=== PATIENT | male | born 1940 | race Caucasian/White ===

== ENCOUNTER 2016-11-21 21:47 | Emergency (ER) | payer MEDICARE ==
[2016-11-21] MEDS ORDERED: Ondansetron HCl/PF 4 MG/2 ML Vial ONE (21:55)
[2016-11-21] MEDS ORDERED: Midazolam HCl 2 mg/2 ml Vial ONE (21:55)
--- NOTE | 2016-11-21 23:19 | RAD ---
EXAM: ONE VIEW CHEST 11/21/16 COMPARISON: 06/01/16 HISTORY: SVT. Chest pain. FINDINGS: Normal cardiac silhouette per portable technique. Calcified right paratracheal lymph node. Pulmonary vessels are within normal limits. Patchy reticulonodular opacities likely due to interstitial edema . No pneumothorax or pleural effusion. No osseous abnormality. IMPRESSION: Interstitial edema. POS: [facility]
[2016-11-21 23:31] LABS: #Basophils 0.1 thou/uL (0.0-0.2); #Eosinphils 0.2 thou/uL (0.0-0.7); #Lymphocytes 1.4 thou/uL (1.20-3.40); #Monocytes 0.6 thou/uL (0.11-0.59); #Neutrophils 4.4 thou/uL (1.40-6.50); %Basophils 0.8 % (0.0-1.0); %Eosinophils 3.3 % (0.0-10.0); %Lymphocytes 20.9 % (21.0-51.0); %Monocytes 8.5 % (0.0-10.0); Hematocrit 40.8 % (42.0-52.0); Mean Platelet Volume 7.4 fL (7.4-10.4); Red Blood Cell (RBC) Count 4.54 mill/uL (4.70-6.10); White Blood Cell (WBC) Count 6.6 thou/uL (4.8-10.8)
[2016-11-21 23:49] LABS: Anion Gap 12 mmol/L (10-20); BUN (Urea Nitrogen) 21 mg/dL (8.4-25.7); Calc. Creatinine Clearance 0 mL/min (70-130); Calcium 8.3 mg/dL (7.8-10.44); Carbon Dioxide 23 mmol/L (23-31); Chloride 108 mmol/L (98-107); Estimated GFR-MDRD 60
[2016-11-21 23:55] LABS: Troponin I 0.022 ng/mL (< 0.028)
== END 2016-11-22 00:28 | disposition home or self-care (01) ==
LOC: ERS 21:47
DX: I47.1 Supraventricular tachycardia (principal); I48.92 Unspecified atrial flutter; I48.91 Unspecified atrial fibrillation
CPT/HCPCS: 36415; 71010; 80048; 82553; 84484; 85025; 93005; 93010; 96374; 96375; J2250; J2270; J2405

== ENCOUNTER 2017-08-26 10:31 | Outpatient (CLI) | payer OTHER ==
--- NOTE | 2017-08-26 12:25 | CT ---
CTA OF CHEST WITH CONTRAST: Date: 08/26/17 COMPARISON: None. HISTORY: Assess flow within the left atrial appendage. Atrial fibrillation needing anticoagulation. TECHNIQUE: Multiple contiguous axial images were obtained in a CTA of the chest with contrast. 3D sagittal and c oronal MIP reformats were performed. FINDINGS: Adequate contrast was seen in the left atrium and ventricle. There is an occlusive device adjacent to the left atrium. No significant flow is seen extending from the region of this occlusive device towa rds an atrial appendage. Normal flow is seen within the pulmonary veins. There is a small amount of f luid within the pericardium adjacent to the occlusion device. Calcifications are seen in the coronary arteries. No hilar or mediastinal lymphadenopathy are seen. No suspicious pulmonary nodules are seen. No focal infiltrates are seen. No pneumothorax or pleural e ffusions are seen. The visualized subdiaphragmatic structures are unremarkable. Degenerative changes are seen in the spi ne. The chest wall soft tissues are unremarkable. IMPRESSION: No significant flow seen within an atrial appendage. There is a nonspecific small amount of fluid wit hin the pericardium adjacent to the occlusive device. POS: [facility]
[2017-08-26] MEDS ORDERED: Iopamidol 370 76% 100 ML VIAL ONE (12:54)
== END 2017-08-26 10:32 | disposition home or self-care (01) ==
LOC: CT 10:31
PROVIDERS: ATTEND Internal Medicine Cardiovascular Disease
DX: Z48.812 Encounter for surgical aftercare following surgery on the circulatory system (principal); Z95.811 Presence of heart assist device; J94.8 Other specified pleural conditions
CPT/HCPCS: 71275; 82565

== ENCOUNTER 2020-03-20 14:59 | Outpatient (CLI) | payer MEDICARE ==
--- NOTE | 2020-03-20 15:42 | RAD ---
XR Lumbar Spine 2 Or 3 View: 03/20/2020 3:30 PM INDICATION: Spondylosis of the lumbar region without myelopathy or radiculopathy; no specific injury COMPARISON: None FINDINGS: Fracture: None. Alignment: There is grade 1 anterolisthesis of L4 and L5. Degenerative Change: There is moderate disc degenerative disease at L4-5 and L5-S1. There is moderat e degenerative change of the facet joints at L4-5 and L5-S1. Mild disc degenerative disease is seen at the remaining lumbar intervertebral levels. Bone Mineralization:Mild osteopenia Soft tissues: There are moderate vascular calcifications seen involving the visualized vasculature. IMPRESSION: 1. No acute fracture or subluxation. 2. Moderate lumbar spondylosis. There is grade 1 anterolisthesis of L4 and L5 which is likely degener ative.
--- NOTE | 2020-03-20 15:49 | CT ---
CT lumbar spine without IV contrast INDICATION: Low back pain Comparison: Lumbar spinal radiographs dated March 20, 2020 FINDINGS: Bones: There is diffuse osteopenia. There is grade 1 anterolisthesis of L4 and L5. No pars defects ar e evident. Disc spaces: There is moderate to severe narrowing of the L4-5 intervertebral disc level with vacuum disc phenomenon. There is Modic endplate degenerative changes at L4-5. There is a [id number] disc degenerative disease at L5-S1. There is moderate degenerative changes at L3-4, L2-3 and L1-2. Sm all bony hemangioma is seen within T12. Osseous central canal and neural foramina: At L5-S1, there is no appreciable osseous central canal or neural foraminal narrowing. At L4-5, there is severe central canal narrowing due to broad-based disc osteophyte complex, severe f acet hypertrophy and ligamentum flavum hypertrophy. There is at least moderate to severe bilateral osseous neural foraminal narrowing. At L3-4, there is a broad-based bulge with facet hypertrophy inducing mild central canal narrowing an d mild right neural foraminal narrowing. At L2-3, there is a broad-based bulge with facet hypertrophy inducing at least mild central canal rai rowing and mild bilateral neural foraminal narrowing. At L1-L2, there is no appreciable central canal or neuroforaminal narrowing. At T12-L1, there is no appreciable central canal or neural foraminal narrowing. Retroperitoneum and paravertebral soft tissues: There are moderate vascular calcifications seen invol ving the visualized vasculature. There is partial resolution of 4.2 cm hypodense mass within the left hemipelvis. IMPRESSION: 1. No acute fracture or subluxation demonstrated. 2. Moderate to severe lumbar spondylosis. Degenerative Grade 1 anterior anterolisthesis of L4 and L5 . There is severe central canal narrowing and moderate to severe bilateral osseous neural foraminal narrowing at L4-5. Mild central canal narrowing and mild right neural foraminal narrowing at L3-4. Mi ld central canal narrowing mild bilateral neural foraminal narrowing at L2-3. 3. Partially imaged 4.2 cm hypodense mass in the left hemipelvis. Follow-up CT the abdomen and pelvis with IV and enteric contrast is recommended for additional characterization.
== END 2020-03-20 15:00 | disposition home or self-care (01) ==
LOC: BICCT 14:59
PROVIDERS: ATTEND Family Medicine
DX: M47.816 Spondylosis without myelopathy or radiculopathy, lumbar region (principal); M43.16 Spondylolisthesis, lumbar region; M48.061 Spinal stenosis, lumbar region without neurogenic claudication; M89.9 Disorder of bone, unspecified
CPT/HCPCS: 72100; 72131

== ENCOUNTER 2020-10-30 13:43 | Outpatient (CLI) | payer OTHER | END 2020-10-30 13:44 | disposition home or self-care (01) | LOC: CT 13:43 | PROVIDERS: ATTEND Internal Medicine | DX: M47.22 Other spondylosis with radiculopathy, cervical region (principal) | CPT/HCPCS: 72125 ==

== ENCOUNTER 2021-05-26 03:38 | Emergency (ER) | payer MEDICARE, OTHER ==
[2021-05-26] MEDS ORDERED: Ketorolac Tromethamine 30 MG/ML VIAL ONE (03:59)
[2021-05-26 04:25] LABS: #Basophils 0.1 thou/uL (0.0-0.2); #Eosinphils 0.3 thou/uL (0.0-0.7); #Lymphocytes 1.2 thou/uL (1.20-3.40); #Monocytes 0.4 thou/uL (0.11-0.59); #Neutrophils 3.5 thou/uL (1.40-6.50); %Basophils 1.1 % (0.0-1.0); %Lymphocytes 22.4 % (21.0-51.0); %Neutrophils 63.5 % (42.0-75.0); Hemoglobin 15.4 g/dL (14.0-18.0); Mean Corpuscular HGB CONC 31.9 g/dL (32.0-36.0); Mean Corpuscular Hemoglobin 29.1 pg (27.0-31.0); Mean Corpuscular Volume 91.1 fL (78.0-98.0); Mean Platelet Volume 7.3 fL (7.4-10.4); Platelet Count 168 thou/uL (130-400); RBC Distribution Width 12.5 % (11.5-14.5); Red Blood Cell (RBC) Count 5.31 mill/uL (4.70-6.10); White Blood Cell (WBC) Count 5.5 thou/uL (4.8-10.8)
[2021-05-26 04:55] LABS: ALT (SGPT) 7 U/L (8-55); AST (SGOT) 12 U/L (5-34); Albumin 4.2 g/dL (3.4-4.8); Alkaline Phosphatase 47 U/L (40-110); Anion Gap 14 mmol/L (10-20); BUN (Urea Nitrogen) 20 mg/dL (8.4-25.7); Bilirubin, Total 0.4 mg/dL (0.2-1.2); Calc. Creatinine Clearance 0 mL/min (70-130); Carbon Dioxide 24 mmol/L (23-31); Chloride 105 mmol/L (98-107); Globulin 2.5 g/dL (2.4-3.5); Glucose 99 mg/dL (83-110); Protein, Total 6.7 g/dL (5.8-8.1); Sodium 139 mmol/L (136-145)
[2021-05-26 05:19] LABS: Bilirubin Negative (Negative); Blood, Urine Negative (Negative); Clarity Clear (Clear); Glucose, Urine (Dipstick) Normal (Negative); Ketone, Urine Negative (Negative); Leukocyte Negative Leu/uL (Negative); Nitrite Negative (Negative); Protein, Urine (Dipstick) Negative (Neg-Trace); Specific Gravity, Urine 1.013 (1.002-1.036); Urobilinogen Normal mg/dL (Less than 2); pH, Urine 5.5 (5.0-9.0)
[2021-05-26] MEDS ORDERED: Ondansetron PF 4 MG/2 ML Vial ONE (05:54)
[2021-05-26] MEDS ORDERED: Morphine 4 MG/ML VIAL ONE (05:54)
== END 2021-05-26 06:39 | disposition home or self-care (01) ==
LOC: ERS 03:38
DX: B02.9 Zoster without complications (principal); R10.31 Right lower quadrant pain; I10 Essential (primary) hypertension; I48.91 Unspecified atrial fibrillation; Z79.890 Hormone replacement therapy
CPT/HCPCS: 74176; 80053; 81003; 85025; 96374; 96375; J1885; J2270; J2405

== ENCOUNTER 2021-08-17 18:19 | Observation (INO) | payer MEDICARE ==
[2021-08-17 19:25] LABS: #Basophils 0.1 thou/uL (0.0-0.2); #Eosinphils 0.4 thou/uL (0.0-0.7); #Lymphocytes 1.3 thou/uL (1.20-3.40); #Monocytes 0.7 thou/uL (0.11-0.59); %Basophils 0.6 % (0.0-1.0); %Eosinophils 4.4 % (0.0-10.0); %Lymphocytes 15.6 % (21.0-51.0); %Monocytes 7.8 % (0.0-10.0); %Neutrophils 71.6 % (42.0-75.0); Hemoglobin 12.3 g/dL (14.0-18.0); Mean Corpuscular HGB CONC 32.8 g/dL (32.0-36.0); Mean Corpuscular Hemoglobin 30.6 pg (27.0-31.0); Mean Corpuscular Volume 93.2 fL (78.0-98.0); Platelet Count 210 thou/uL (130-400); RBC Distribution Width 12.5 % (11.5-14.5); Red Blood Cell (RBC) Count 4.03 mill/uL (4.70-6.10); White Blood Cell (WBC) Count 8.4 thou/uL (4.8-10.8)
[2021-08-17] MEDS ORDERED: Aspirin Chewable 81 MG TAB ONE (19:29)
[2021-08-17 19:50] LABS: ALT (SGPT) Less than 7 U/L (8-55); AST (SGOT) 14 U/L (5-34); Albumin 3.6 g/dL (3.4-4.8); Alkaline Phosphatase 58 U/L (40-110); Anion Gap 15 mmol/L (10-20); BUN (Urea Nitrogen) 16 mg/dL (8.4-25.7); Bilirubin, Total 0.3 mg/dL (0.2-1.2); CK (CPK) 96 U/L (30-200); Calc. Creatinine Clearance 0 mL/min (70-130); Calcium 8.8 mg/dL (7.8-10.44); Carbon Dioxide 24 mmol/L (23-31); Chloride 103 mmol/L (98-107); Globulin 2.9 g/dL (2.4-3.5); Glucose 104 mg/dL (83-110); Lipase 11 U/L (8-78); Potassium 3.9 mmol/L (3.5-5.1); Protein, Total 6.5 g/dL (5.8-8.1); Sodium 138 mmol/L (136-145)
[2021-08-17 21:34] VITALS: BMI 31.8
[2021-08-17 23:29] LABS: Troponin I Less than 0.010 ng/mL (< 0.028)
[2021-08-18 01:50] LABS: Troponin I Less than 0.010 ng/mL (< 0.028)
[2021-08-18 08:11] VITALS: BP 150/73; TEMP 98.1
[2021-08-18] MEDS ORDERED: Aspirin Chewable 81 MG TAB PO SCH (09:00)
[2021-08-18] MEDS ORDERED: Enoxaparin Sodium 40 MG/0.4 ML SYRINGE SC SCH (09:00)
[2021-08-18] MEDS ORDERED: Levothyroxine Sodium 100 MCG TAB PO SCH (09:00)
[2021-08-18] MEDS ORDERED: Tamsulosin HCl 0.4 MG CAP PO SCH (21:00)
== END 2021-08-18 11:55 | disposition home or self-care (01) ==
LOC: ERS 18:19 → 2SW 20:05
PROVIDERS: ADMIT Internal Medicine; ATTEND Internal Medicine
DX: R00.2 Palpitations (principal); R00.0 Tachycardia, unspecified; R07.89 Other chest pain; I48.91 Unspecified atrial fibrillation; N40.0 Benign prostatic hyperplasia without lower urinary tract symptoms; E03.9 Hypothyroidism, unspecified; E66.9 Obesity, unspecified; Z68.31 Body mass index [BMI] 31.0-31.9, adult; Z79.890 Hormone replacement therapy; Z79.899 Other long term (current) drug therapy; Z91.041 Radiographic dye allergy status; Z95.818 Presence of other cardiac implants and grafts; Z98.890 Other specified postprocedural states; Z20.822 Contact with and (suspected) exposure to COVID-19
CPT/HCPCS: 71045; 81001; 82550; 83690; 83880; 84484 ×3; 87086; 93005; U0003; U0005; 36415; 80053; 84443; 85025; 87077; 87186; G0378

== ENCOUNTER 2022-04-24 08:29 | Day surgery (SDC) | payer OTHER ==
[2022-04-24 08:30] LABS: #Eosinphils 0.3 thou/uL (0.0-0.7); #Lymphocytes 1.4 thou/uL (1.20-3.40); #Monocytes 0.7 thou/uL (0.11-0.59); #Neutrophils 4.3 thou/uL (1.40-6.50); %Basophils 0.5 % (0.0-1.0); %Lymphocytes 20.4 % (21.0-51.0); %Monocytes 9.8 % (0.0-10.0); %Neutrophils 65.3 % (42.0-75.0); Hemoglobin 15.1 g/dL (14.0-18.0); Mean Corpuscular HGB CONC 34.3 g/dL (32.0-36.0); Mean Corpuscular Hemoglobin 30.9 pg (27.0-31.0); Mean Corpuscular Volume 90.2 fl (78.0-98.0); Mean Platelet Volume 7.7 fL (7.4-10.4); Platelet Count 183 10x3/uL (130-400); RBC Distribution Width 12.4 % (11.5-14.5); White Blood Cell (WBC) Count 6.6 10x3/uL (4.8-10.8)
[2022-04-24 08:45] LABS: PTT 28.9 sec (22.9-36.1); Prothrombin Time 13.3 sec (12.0-14.7)
[2022-04-24] MEDS ORDERED: Sodium Bicarbonate 2.5 MEQ/5 ML VIAL ONE (09:37)
[2022-04-24] MEDS ORDERED: Fentanyl 100 MCG/2 ML VIAL ONE (09:37)
[2022-04-24 11:54] VITALS: BP 143/84; TEMP 98.4
== END 2022-04-24 11:00 | disposition short-term general hospital (02) ==
LOC: CT 08:29
PROVIDERS: ATTEND Urology
PROC: 0T9B30Z Drainage of Bladder with Drainage Device, Percutaneous Approach (ICD-10-PCS; principal; 2022-04-24)
DX: N40.1 Benign prostatic hyperplasia with lower urinary tract symptoms (principal); R33.8 Other retention of urine; R39.14 Feeling of incomplete bladder emptying; N31.2 Flaccid neuropathic bladder, not elsewhere classified; N32.3 Diverticulum of bladder; Z87.891 Personal history of nicotine dependence; Z79.890 Hormone replacement therapy; Z79.899 Other long term (current) drug therapy; Z91.041 Radiographic dye allergy status
CPT/HCPCS: 51102; 77002; 85025; 85610; 85730; C2627; J1956; J3010

== ENCOUNTER 2022-04-25 10:51 | Inpatient (IN) | payer MEDICARE, OTHER ==
[2022-04-25 11:32] LABS: Clarity Cloudy (Clear); Glucose, Urine (Dipstick) Unable to Interpret mg/dL (Negative); Ketone, Urine Unable to Interpret mg/dL (Negative); Leukocyte Unable to Interpret Leu/uL (Negative); Nitrite Unable to Interpret (Negative); Protein, Urine (Dipstick) Unable to Interpret mg/dL (Neg-Trace); Specific Gravity, Urine 1.018 (1.002-1.036); pH, Urine 5.7 (5.0-9.0)
[2022-04-25 11:33] LABS: Bacteria/HPF Rare-Few HPF (None Seen); Bilirubin Unable to Interpret (Negative); Blood, Urine Unable to Interpret (Negative); RBC/HPF Greater than 50 HPF (0-3); Squamous Epithelial None Seen HPF (0-3); Urobilinogen UNABLE TO INTERPRET mg/dL (Less than 2)
[2022-04-25] MEDS ORDERED: Morphine 4 MG/ML VIAL SLOW IVP PRN (12:09)
[2022-04-25] MEDS ORDERED: Zolpidem Tartrate 5 MG TAB PO PRN (12:09)
[2022-04-25] MEDS ORDERED: Phenazopyridine HCl 95 MG TAB PO PRN (12:09)
[2022-04-25] MEDS ORDERED: diphenhydrAMINE 50 MG/ML VIAL IVP PRN (12:09)
[2022-04-25] MEDS ORDERED: hydrALAZINE 20 MG/ML VIAL SLOW IVP PRN (12:09)
[2022-04-25] MEDS ORDERED: Mag-Al 1200 mg/1200 mg/30 ML UDCUP PO PRN (12:09)
[2022-04-25] MEDS ORDERED: Morphine 2 MG/ML VIAL SLOW IVP PRN (12:09)
[2022-04-25] MEDS ORDERED: HYDROcodone/Acetaminophen 5/325 mg Tablet PO PRN (12:09)
[2022-04-25] MEDS ORDERED: Bisacodyl 10 MG SUPP PR PRN (12:09)
[2022-04-25] MEDS ORDERED: traMADol HCl 50 MG TAB PO PRN ×2 (12:12)
[2022-04-25 12:38] LABS: Hemoglobin 14.2 g/dL (14.0-18.0); Mean Corpuscular HGB CONC 33.7 g/dL (32.0-36.0); Mean Corpuscular Hemoglobin 30.5 pg (27.0-31.0); Mean Corpuscular Volume 90.5 fl (78.0-98.0); Mean Platelet Volume 7.9 fL (7.4-10.4); Platelet Count 175 10x3/uL (130-400); RBC Distribution Width 12.4 % (11.5-14.5); Red Blood Cell (RBC) Count 4.65 mill/uL (4.70-6.10); White Blood Cell (WBC) Count 7.9 10x3/uL (4.8-10.8)
[2022-04-25] MEDS ORDERED: Ondansetron PF 4 MG/2 ML Vial IVP PRN (12:44)
[2022-04-25] MEDS ORDERED: Acetaminophen 325 MG TAB PO PRN (12:44)
[2022-04-25 12:50] LABS: PTT 30.6 sec (22.9-36.1); Prothrombin Time 13.9 sec (12.0-14.7)
[2022-04-25 12:56] LABS: Anion Gap 9 mmol/L (10-20); BUN (Urea Nitrogen) 14 mg/dL (8.4-25.7); Calc. Creatinine Clearance 0 mL/min (70-130); Calcium 8.6 mg/dL (7.8-10.44); Carbon Dioxide 25 mmol/L (23-31); Chloride 105 mmol/L (98-107); Estimated GFR 87; Glucose 83 mg/dL (83-110); Potassium 4.2 mmol/L (3.5-5.1); Sodium 135 mmol/L (136-145)
[2022-04-25] MEDS: Sodium Chloride 0.9% 1,000 ML IV SCH ×2 (14:17→19:31)
[2022-04-25 14:26] VITALS: BMI 32.1
[2022-04-25] MEDS ORDERED: cefTRIAXone\\ROCEPHIN 2 GM in Sodium Chloride 0.9% 100 ML IVPB SCH (15:00)
[2022-04-25] MEDS: HYDROcodone/Acetaminophen 5/325 mg Tablet PO PRN (17:18)
[2022-04-25] MEDS: Hyoscyamine SL 0.125 MG TAB SL SCH (17:18)
[2022-04-25] MEDS: Famotidine/PF 20 mg/2ml Vial SLOW IVP SCH (19:31)
[2022-04-25] MEDS: Docusate 100 MG CAP PO SCH (19:31)
[2022-04-25] MEDS: Tamsulosin HCl 0.4 MG CAP PO SCH (19:31)
[2022-04-26] MEDS: Hyoscyamine SL 0.125 MG TAB SL SCH ×5 (06:08→23:15)
[2022-04-26] MEDS: Levothyroxine Sodium 100 MCG TAB PO SCH (06:08)
[2022-04-26 06:24] LABS: #Eosinphils 0.4 thou/uL (0.0-0.7); #Monocytes 0.7 thou/uL (0.11-0.59); #Neutrophils 5.5 thou/uL (1.40-6.50); %Basophils 0.5 % (0.0-1.0); %Eosinophils 5.4 % (0.0-10.0); %Monocytes 9.2 % (0.0-10.0); Hemoglobin 13.1 g/dL (14.0-18.0); Mean Corpuscular HGB CONC 33.4 g/dL (32.0-36.0); Mean Corpuscular Hemoglobin 30.8 pg (27.0-31.0); Mean Corpuscular Volume 92.2 fl (78.0-98.0); Mean Platelet Volume 8.5 fL (7.4-10.4); Platelet Count 137 10x3/uL (130-400); RBC Distribution Width 12.5 % (11.5-14.5); Red Blood Cell (RBC) Count 4.24 mill/uL (4.70-6.10); White Blood Cell (WBC) Count 7.6 10x3/uL (4.8-10.8)
[2022-04-26 06:41] LABS: Anion Gap 13 mmol/L (10-20); BUN (Urea Nitrogen) 11 mg/dL (8.4-25.7); Calc. Creatinine Clearance 104 mL/min (70-130); Calcium 8.3 mg/dL (7.8-10.44); Carbon Dioxide 21 mmol/L (23-31); Chloride 108 mmol/L (98-107); Estimated GFR 86; Glucose 90 mg/dL (83-110); Potassium 3.9 mmol/L (3.5-5.1); Sodium 138 mmol/L (136-145)
[2022-04-26] MEDS ORDERED: fentaNYL PF 100 MCG/2 ML SYRINGE ONE (07:41)
[2022-04-26] MEDS ORDERED: Piperacillin/Tazobactam 3.375 GM VIAL ONE (07:55)
[2022-04-26] MEDS ORDERED: Sodium Chloride 0.9% 100 ML ONE (07:55)
[2022-04-26] MEDS ORDERED: PHENYLEPHRINE-NS 100 MCG/ML 10 ML SYRINGE ONE (08:26)
[2022-04-26] MEDS ORDERED: PROPOFOL 200 MG/20 ML VIAL ONE (08:26)
[2022-04-26] MEDS ORDERED: Glycopyrrolate 0.2 MG/ML 5 ML SYRINGE ONE (08:26)
[2022-04-26] MEDS ORDERED: NEOSTIGMINE 3 MG/3 ML SYR 3 MG/3 ML SYRINGE ONE (08:26)
[2022-04-26] MEDS ORDERED: Lidocaine 1% PF 5 ML VIAL ONE (08:26)
[2022-04-26] MEDS ORDERED: Rocuronium Bromide 10 MG/ML (10ML VIAL) ONE (08:26)
[2022-04-26] MEDS ORDERED: Piperacillin/Tazobactam 3.375 GM in Sodium Chloride 0.9% 100 ML IVPB SCH ×2 (08:30→15:00)
[2022-04-26] MEDS ORDERED: PACU-Morphine 4MG/ML VIAL SLOW IVP PRN (08:58)
[2022-04-26] MEDS ORDERED: Morphine Sulfate 2 MG/ML SYRINGE SLOW IVP PRN (08:58)
[2022-04-26] MEDS ORDERED: Ondansetron HCl/PF 4 MG/2 ML Vial IVP PRN (08:58)
[2022-04-26] MEDS ORDERED: Promethazine HCl 25 MG/ML VIAL IM PRN (08:58)
[2022-04-26] MEDS ORDERED: HYDROmorphone 2 MG/ML VIAL SLOW IVP PRN (08:58)
[2022-04-26] MEDS: HYDROcodone/Acetaminophen 5/325 mg Tablet PO PRN ×3 (11:32→21:24)
[2022-04-26] MEDS: Docusate 100 MG CAP PO SCH ×2 (13:03→21:22)
[2022-04-26] MEDS: Famotidine/PF 20 mg/2ml Vial SLOW IVP SCH ×2 (13:03→21:23)
[2022-04-26] MEDS: Multivitamin W/ Minerals 1 TAB PO SCH (13:04)
[2022-04-26] MEDS: Fentanyl 100 MCG/2 ML VIAL SLOW IVP PRN ×2 (13:08→18:11)
[2022-04-26] MEDS: Piperacillin/Tazobactam 3.375 GM in Sodium Chloride 0.9% 100 ML IVPB SCH ×2 (14:21→21:30)
[2022-04-26] MEDS: Sodium Chloride 0.9% 1,000 ML IV SCH (15:23)
[2022-04-26] MEDS: Tamsulosin HCl 0.4 MG CAP PO SCH (21:23)
[2022-04-27] MEDS: Sodium Chloride 0.9% 1,000 ML IV SCH ×2 (02:57→16:37)
[2022-04-27] MEDS: Piperacillin/Tazobactam 3.375 GM in Sodium Chloride 0.9% 100 ML IVPB SCH ×3 (05:13→21:16)
[2022-04-27] MEDS: Levothyroxine Sodium 100 MCG TAB PO SCH (05:15)
[2022-04-27] MEDS: Hyoscyamine SL 0.125 MG TAB SL SCH ×3 (05:15→18:37)
[2022-04-27] MEDS: HYDROcodone/Acetaminophen 5/325 mg Tablet PO PRN (05:24)
[2022-04-27 06:20] LABS: #Eosinphils 0.3 thou/uL (0.0-0.7); #Lymphocytes 0.9 thou/uL (1.20-3.40); #Monocytes 0.8 thou/uL (0.11-0.59); #Neutrophils 7.9 thou/uL (1.40-6.50); %Basophils 0.4 % (0.0-1.0); %Eosinophils 3.1 % (0.0-10.0); %Monocytes 8.1 % (0.0-10.0); %Neutrophils 79.5 % (42.0-75.0); Hemoglobin 12.2 g/dL (14.0-18.0); Mean Corpuscular HGB CONC 34.1 g/dL (32.0-36.0); Mean Corpuscular Hemoglobin 30.9 pg (27.0-31.0); Mean Corpuscular Volume 90.4 fl (78.0-98.0); Mean Platelet Volume 8.1 fL (7.4-10.4); Platelet Count 157 10x3/uL (130-400); RBC Distribution Width 12.3 % (11.5-14.5); Red Blood Cell (RBC) Count 3.96 mill/uL (4.70-6.10)
[2022-04-27] MEDS: Famotidine/PF 20 mg/2ml Vial SLOW IVP SCH ×2 (09:43→21:15)
[2022-04-27] MEDS: Docusate 100 MG CAP PO SCH ×2 (09:44→21:15)
[2022-04-27] MEDS: Multivitamin W/ Minerals 1 TAB PO SCH (09:44)
[2022-04-27] MEDS: Tamsulosin HCl 0.4 MG CAP PO SCH (21:15)
[2022-04-28] MEDS: Hyoscyamine SL 0.125 MG TAB SL SCH ×3 (00:07→11:29)
[2022-04-28] MEDS: Sodium Chloride 0.9% 1,000 ML IV SCH (00:08)
[2022-04-28] MEDS: Piperacillin/Tazobactam 3.375 GM in Sodium Chloride 0.9% 100 ML IVPB SCH (05:55)
[2022-04-28] MEDS: Levothyroxine Sodium 100 MCG TAB PO SCH (05:55)
[2022-04-28] MEDS: Multivitamin W/ Minerals 1 TAB PO SCH (07:55)
[2022-04-28] MEDS: Docusate 100 MG CAP PO SCH (07:55)
[2022-04-28] MEDS: Famotidine/PF 20 mg/2ml Vial SLOW IVP SCH (07:56)
[2022-04-28 12:32] VITALS: BP 133/73; TEMP 98.1
== END 2022-04-28 12:57 | disposition home or self-care (01) | DRG 654 ==
LOC: ERS 10:51 → SURG B 13:41 → OBSVTOIN 04-26 14:12
PROVIDERS: ADMIT Internal Medicine; ATTEND Internal Medicine
PROC: 0T9B30Z Drainage of Bladder with Drainage Device, Percutaneous Approach (ICD-10-PCS; 2022-04-24)
PROC: 0T7B8ZZ Dilation of Bladder, Via Natural or Artificial Opening Endoscopic (ICD-10-PCS; principal; 2022-04-26)
PROC: 0T2BX0Z Change Drainage Device in Bladder, External Approach (ICD-10-PCS; 2022-04-26)
PROC: 0TCB8ZZ Extirpation of Matter from Bladder, Via Natural or Artificial Opening Endoscopic (ICD-10-PCS; 2022-04-26)
DX: R31.0 Gross hematuria (principal); D62 Acute posthemorrhagic anemia; E87.1 Hypo-osmolality and hyponatremia; I48.91 Unspecified atrial fibrillation; E03.9 Hypothyroidism, unspecified; N31.2 Flaccid neuropathic bladder, not elsewhere classified; N32.3 Diverticulum of bladder; Y84.6 Urinary catheterization as the cause of abnormal reaction of the patient, or of later complication, without mention of misadventure at the time of the procedure; N18.2 Chronic kidney disease, stage 2 (mild); E66.9 Obesity, unspecified; Z87.891 Personal history of nicotine dependence; Z91.041 Radiographic dye allergy status; Z79.899 Other long term (current) drug therapy; Z68.32 Body mass index [BMI] 32.0-32.9, adult; Z79.890 Hormone replacement therapy; N40.1 Benign prostatic hyperplasia with lower urinary tract symptoms; R33.8 Other retention of urine; R39.14 Feeling of incomplete bladder emptying
CPT/HCPCS: 36415; 36416; 51102; 77002; 80048; 81003; 81015; 85025; 85027; 85610; 85730; 86850; 86900; 86901; 87086; 96365; 96375; 99284; C1769; C2627; G0378; J0696; J1956; J2270; J2272; J2543; J2704; J3010; J3490; J7050; S0028

== ENCOUNTER 2022-07-05 21:54 | Emergency (ER) | payer OTHER ==
[2022-07-05 23:01] LABS: #Eosinphils 0.1 thou/uL (0.0-0.7); #Monocytes 0.9 thou/uL (0.11-0.59); #Neutrophils 12.1 thou/uL (1.40-6.50); %Basophils 0.3 % (0.0-1.0); %Eosinophils 0.6 % (0.0-10.0); %Monocytes 6.6 % (0.0-10.0); %Neutrophils 87.2 % (42.0-75.0); Hemoglobin 14.3 g/dL (14.0-18.0); Mean Corpuscular HGB CONC 32.6 g/dL (32.0-36.0); Mean Corpuscular Hemoglobin 28.1 pg (27.0-31.0); Mean Corpuscular Volume 86.1 fl (78.0-98.0); Mean Platelet Volume 9.8 fL (7.4-10.4); Platelet Count 192 10x3/uL (130-400); RBC Distribution Width 13.4 % (11.5-14.5); Red Blood Cell (RBC) Count 5.09 mill/uL (4.70-6.10); White Blood Cell (WBC) Count 13.9 10x3/uL (4.8-10.8)
[2022-07-05 23:48] LABS: ALT (SGPT) Less than 7 U/L (8-55); AST (SGOT) 13 U/L (5-34); Albumin 4.2 g/dL (3.4-4.8); Alkaline Phosphatase 56 U/L (40-110); Anion Gap 15 mmol/L (10-20); BUN (Urea Nitrogen) 18 mg/dL (8.4-25.7); Bilirubin, Total 0.3 mg/dL (0.2-1.2); Calc. Creatinine Clearance 0 mL/min (70-130); Calcium 9.2 mg/dL (7.8-10.44); Carbon Dioxide 22 mmol/L (23-31); Chloride 104 mmol/L (98-107); Estimated GFR 85; Globulin 2.9 g/dL (2.4-3.5); Glucose 113 mg/dL (83-110); Potassium 3.9 mmol/L (3.5-5.1); Protein, Total 7.1 g/dL (5.8-8.1); Sodium 137 mmol/L (136-145)
== END 2022-07-06 00:12 | disposition left against medical advice (07) ==
LOC: ERS 21:54
DX: Z53.21 Procedure and treatment not carried out due to patient leaving prior to being seen by health care provider (principal)
CPT/HCPCS: 36415; 80053; 85025

== ENCOUNTER 2022-08-14 01:01 | Inpatient (IN) | payer OTHER ==
[2022-08-14] MEDS ORDERED: Ketorolac Tromethamine 30 MG/ML VIAL ONE (01:28)
[2022-08-14 01:44] LABS: Bacteria/HPF None Seen HPF (None Seen); Bilirubin Negative (Negative); Blood, Urine 2+ (Negative); CAUTI Indications for Culture Fever or rigors; Clarity Turbid (Clear); Glucose, Urine (Dipstick) Normal (Negative); Ketone, Urine Negative (Negative); Leukocyte 250 Leu/uL (Negative); Nitrite Negative (Negative); Protein, Urine (Dipstick) 10 mg/dL (Neg-Trace); RBC/HPF 21-50 HPF (0-3); Specific Gravity, Urine 1.016 (1.002-1.036); Squamous Epithelial None Seen HPF (0-3); Urobilinogen Normal mg/dL (Less than 2); WBC/HPF 21-50 HPF (0-3)
[2022-08-14 01:45] LABS: Urine Culture Reflex Yes Yes
[2022-08-14 01:50] LABS: #Basophils 0.1 thou/uL (0.0-0.2); #Monocytes 0.5 thou/uL (0.11-0.59); #Neutrophils 10.1 thou/uL (1.40-6.50); %Basophils 0.5 % (0.0-1.0); %Eosinophils 0.3 % (0.0-10.0); %Lymphocytes 2.5 % (21.0-51.0); %Monocytes 4.3 % (0.0-10.0); Hemoglobin 13.2 g/dL (14.0-18.0); Mean Corpuscular HGB CONC 33.1 g/dL (32.0-36.0); Mean Corpuscular Hemoglobin 27.8 pg (27.0-31.0); Mean Corpuscular Volume 84.2 fl (78.0-98.0); Mean Platelet Volume 9.6 fL (7.4-10.4); Platelet Count 147 10x3/uL (130-400); RBC Distribution Width 14.6 % (11.5-14.5); Red Blood Cell (RBC) Count 4.74 mill/uL (4.70-6.10); White Blood Cell (WBC) Count 10.9 10x3/uL (4.8-10.8)
[2022-08-14 02:13] LABS: AST (SGOT) 13 U/L (5-34); Albumin 3.8 g/dL (3.4-4.8); Alkaline Phosphatase 45 U/L (40-110); Anion Gap 14 mmol/L (10-20); BUN (Urea Nitrogen) 15 mg/dL (8.4-25.7); Bilirubin, Total 0.5 mg/dL (0.2-1.2); Calc. Creatinine Clearance 0 mL/min (70-130); Calcium 8.5 mg/dL (7.8-10.44); Carbon Dioxide 21 mmol/L (23-31); Chloride 106 mmol/L (98-107); Estimated GFR 88; Globulin 2.5 g/dL (2.4-3.5); Glucose 129 mg/dL (83-110); Potassium 3.7 mmol/L (3.5-5.1); Protein, Total 6.3 g/dL (5.8-8.1); Sodium 137 mmol/L (136-145)
[2022-08-14 02:14] LABS: ALT (SGPT) Less than 7 U/L (8-55)
[2022-08-14] MEDS ORDERED: Vancomycin 1 GM/200 ML (FROZEN) BAG ONE (02:56)
[2022-08-14] MEDS ORDERED: cefTRIAXone (ROCEPHIN) 2 GM VIAL ONE (02:56)
[2022-08-14] MEDS ORDERED: Cefepime 2 GM VIAL ONE (02:57)
[2022-08-14] MEDS ORDERED: Ondansetron ODT 4 MG TAB PO PRN (03:08)
[2022-08-14] MEDS ORDERED: Acetaminophen 325 MG TAB PO PRN ×2 (03:08→09:07)
[2022-08-14] MEDS ORDERED: Ondansetron PF 4 MG/2 ML Vial IVP PRN (03:08)
[2022-08-14 03:41] LABS: Magnesium 1.9 mg/dL (1.6-2.6)
[2022-08-14] MEDS ORDERED: Electrolyte Replacement Protocol 1 EACH FS SCH (04:00)
[2022-08-14] MEDS ORDERED: Magnesium 2 GM/50 ML(in water) 2 GM in Premix Bag 1 BAG IVPB SCH (04:00)
[2022-08-14 05:39] VITALS: BMI 33.0
[2022-08-14] MEDS: Lactated Ringer's 1,000 ML IV SCH ×2 (06:01→19:07)
[2022-08-14 06:46] LABS: Legionella Urinary Ag Negative (Negative); Strep pneumo Urine Ag NEGATIVE (NEGATIVE)
[2022-08-14] MEDS ORDERED: traMADol HCl 50 MG TAB PO PRN (09:07)
[2022-08-14] MEDS ORDERED: Cefepime 1 GM in Sodium Chloride 0.9% 100 ML IVPB SCH (15:00)
[2022-08-14] MEDS: Vancomycin 1 GM in Premix Bag 1 BAG IVPB SCH (16:22)
[2022-08-14] MEDS ORDERED: Cefepime 2 GM VIAL IVPB SCH (20:00)
[2022-08-14] MEDS: Docusate 100 MG CAP PO SCH (20:32)
[2022-08-14] MEDS: Tamsulosin HCl 0.4 MG CAP PO SCH (20:32)
[2022-08-14] MEDS: Cefepime 2 GM in Sodium Chloride 0.9% 100 ML IVPB SCH (20:32)
[2022-08-14] MEDS: Melatonin 3 MG TAB PO PRN (21:17)
[2022-08-15] MEDS: Vancomycin 1 GM in Premix Bag 1 BAG IVPB SCH (03:55)
[2022-08-15 07:12] LABS: #Basophils 0.1 thou/uL (0.0-0.2); #Eosinphils 0.5 thou/uL (0.0-0.7); #Monocytes 0.7 thou/uL (0.11-0.59); #Neutrophils 5.1 thou/uL (1.40-6.50); %Basophils 0.7 % (0.0-1.0); %Eosinophils 6.9 % (0.0-10.0); %Lymphocytes 11.1 % (21.0-51.0); %Neutrophils 71.2 % (42.0-75.0); Hemoglobin 12.8 g/dL (14.0-18.0); Mean Corpuscular HGB CONC 32.7 g/dL (32.0-36.0); Mean Corpuscular Hemoglobin 27.9 pg (27.0-31.0); Mean Corpuscular Volume 85.6 fl (78.0-98.0); Mean Platelet Volume 9.6 fL (7.4-10.4); Platelet Count 152 10x3/uL (130-400); RBC Distribution Width 14.8 % (11.5-14.5); Red Blood Cell (RBC) Count 4.58 mill/uL (4.70-6.10); White Blood Cell (WBC) Count 7.1 10x3/uL (4.8-10.8)
[2022-08-15 07:38] LABS: Anion Gap 12 mmol/L (10-20); BUN (Urea Nitrogen) 13 mg/dL (8.4-25.7); Calc. Creatinine Clearance 112 mL/min (70-130); Calcium 8.6 mg/dL (7.8-10.44); Carbon Dioxide 22 mmol/L (23-31); Chloride 106 mmol/L (98-107); Estimated GFR 87; Glucose 108 mg/dL (83-110); Potassium 3.8 mmol/L (3.5-5.1); Sodium 136 mmol/L (136-145)
[2022-08-15] MEDS ORDERED: [UNRECOGNIZED DRUG - OTHER] PO SCH (09:00)
[2022-08-15] MEDS: Multivit, Therapeutic 1 TAB PO SCH (09:21)
[2022-08-15] MEDS: Cefepime 2 GM in Sodium Chloride 0.9% 100 ML IVPB SCH ×2 (09:21→20:23)
[2022-08-15] MEDS: Levothyroxine Sodium 100 MCG TAB PO SCH (09:21)
[2022-08-15] MEDS: Docusate 100 MG CAP PO SCH ×2 (09:21→20:23)
[2022-08-15 14:32] LABS: Vancomycin, Trough 6.4 ug/mL
[2022-08-15] MEDS: VANCOMYCIN 1.25 GM/250 ML BAG 1.25 GM in Premix Bag 1 BAG IVPB SCH (16:05)
[2022-08-15] MEDS: Tamsulosin HCl 0.4 MG CAP PO SCH (20:23)
[2022-08-16] MEDS: VANCOMYCIN 1.25 GM/250 ML BAG 1.25 GM in Premix Bag 1 BAG IVPB SCH ×2 (03:51→14:25)
[2022-08-16] MEDS: Docusate 100 MG CAP PO SCH ×2 (08:15→21:19)
[2022-08-16] MEDS: Levothyroxine Sodium 100 MCG TAB PO SCH (08:15)
[2022-08-16] MEDS: Cefepime 2 GM in Sodium Chloride 0.9% 100 ML IVPB SCH ×2 (08:16→21:21)
[2022-08-16] MEDS: Multivit, Therapeutic 1 TAB PO SCH (08:16)
[2022-08-16 09:09] LABS: #Basophils 0.1 thou/uL (0.0-0.2); #Eosinphils 0.5 thou/uL (0.0-0.7); #Monocytes 0.5 thou/uL (0.11-0.59); #Neutrophils 3.5 thou/uL (1.40-6.50); %Basophils 1.1 % (0.0-1.0); %Eosinophils 8.7 % (0.0-10.0); %Lymphocytes 18.2 % (21.0-51.0); %Monocytes 8.7 % (0.0-10.0); %Neutrophils 62.9 % (42.0-75.0); Mean Corpuscular HGB CONC 32.8 g/dL (32.0-36.0); Mean Corpuscular Volume 85.4 fl (78.0-98.0); Mean Platelet Volume 10.1 fL (7.4-10.4); Platelet Count 153 10x3/uL (130-400); RBC Distribution Width 14.6 % (11.5-14.5); White Blood Cell (WBC) Count 5.5 10x3/uL (4.8-10.8)
[2022-08-16 09:22] LABS: Anion Gap 13 mmol/L (10-20); BUN (Urea Nitrogen) 12 mg/dL (8.4-25.7); Calc. Creatinine Clearance 108 mL/min (70-130); Calcium 8.9 mg/dL (7.8-10.44); Carbon Dioxide 22 mmol/L (23-31); Chloride 106 mmol/L (98-107); Estimated GFR 86; Glucose 110 mg/dL (83-110); Sodium 137 mmol/L (136-145)
[2022-08-16] MEDS: Tamsulosin HCl 0.4 MG CAP PO SCH (21:19)
[2022-08-16] MEDS: Melatonin 3 MG TAB PO PRN (22:05)
[2022-08-17] MEDS: Levothyroxine Sodium 100 MCG TAB PO SCH (09:32)
[2022-08-17] MEDS: Docusate 100 MG CAP PO SCH (09:32)
[2022-08-17] MEDS: Cefepime 2 GM in Sodium Chloride 0.9% 100 ML IVPB SCH ×2 (09:32→20:31)
[2022-08-17] MEDS: Multivit, Therapeutic 1 TAB PO SCH (09:32)
[2022-08-17] MEDS ORDERED: Bisacodyl 10 MG SUPP PR PRN (11:15)
[2022-08-17 11:31] LABS: #Eosinphils 0.4 thou/uL (0.0-0.7); #Monocytes 0.6 thou/uL (0.11-0.59); #Neutrophils 4.4 thou/uL (1.40-6.50); %Basophils 0.6 % (0.0-1.0); %Eosinophils 6.8 % (0.0-10.0); %Lymphocytes 14.3 % (21.0-51.0); %Monocytes 8.8 % (0.0-10.0); %Neutrophils 69.2 % (42.0-75.0); Hemoglobin 13.6 g/dL (14.0-18.0); Mean Corpuscular HGB CONC 33.3 g/dL (32.0-36.0); Mean Corpuscular Hemoglobin 28.1 pg (27.0-31.0); Mean Corpuscular Volume 84.3 fl (78.0-98.0); Platelet Count 180 10x3/uL (130-400); RBC Distribution Width 14.5 % (11.5-14.5); Red Blood Cell (RBC) Count 4.84 mill/uL (4.70-6.10); White Blood Cell (WBC) Count 6.4 10x3/uL (4.8-10.8)
[2022-08-17 12:00] LABS: Anion Gap 14 mmol/L (10-20); BUN (Urea Nitrogen) 12 mg/dL (8.4-25.7); Calc. Creatinine Clearance 111 mL/min (70-130); Carbon Dioxide 23 mmol/L (23-31); Chloride 103 mmol/L (98-107); Estimated GFR 87; Glucose 98 mg/dL (83-110); Potassium 4.1 mmol/L (3.5-5.1); Sodium 136 mmol/L (136-145)
[2022-08-17] MEDS ORDERED: Iopamidol-370 76% 500 ML MDV (1 ML CHARGE) ONE (12:57)
[2022-08-17] MEDS: Tamsulosin HCl 0.4 MG CAP PO SCH (20:31)
[2022-08-17] MEDS: Senokot S 8.6-50 MG TAB PO SCH (20:31)
[2022-08-17] MEDS: predniSONE 50 MG TAB PO SCH (20:31)
[2022-08-17] MEDS: Melatonin 3 MG TAB PO PRN (21:49)
[2022-08-18] MEDS: predniSONE 50 MG TAB PO SCH ×2 (03:33→08:31)
[2022-08-18 07:21] LABS: #Monocytes 0.1 thou/uL (0.11-0.59); #Neutrophils 5.8 thou/uL (1.40-6.50); %Basophils 0.4 % (0.0-1.0); %Eosinophils 0.1 % (0.0-10.0); %Lymphocytes 11.1 % (21.0-51.0); %Monocytes 1.2 % (0.0-10.0); %Neutrophils 86.6 % (42.0-75.0); Hemoglobin 15.5 g/dL (14.0-18.0); Mean Corpuscular HGB CONC 31.3 g/dL (32.0-36.0); Mean Corpuscular Hemoglobin 27.9 pg (27.0-31.0); Mean Platelet Volume 11.3 fL (7.4-10.4); Platelet Count 175 10x3/uL (130-400); RBC Distribution Width 14.6 % (11.5-14.5); Red Blood Cell (RBC) Count 5.55 mill/uL (4.70-6.10); White Blood Cell (WBC) Count 6.7 10x3/uL (4.8-10.8)
[2022-08-18 07:36] LABS: Mean Corpuscular Volume 89.4 fl (78.0-98.0)
[2022-08-18 07:42] LABS: Anion Gap 13 mmol/L (10-20); BUN (Urea Nitrogen) 15 mg/dL (8.4-25.7); Calc. Creatinine Clearance 98 mL/min (70-130); Calcium 9.7 mg/dL (7.8-10.44); Carbon Dioxide 24 mmol/L (23-31); Chloride 102 mmol/L (98-107); Estimated GFR 79; Glucose 151 mg/dL (83-110); Potassium 4.3 mmol/L (3.5-5.1); Sodium 135 mmol/L (136-145)
[2022-08-18] MEDS ORDERED: diphenhydrAMINE 50 MG CAP PO SCH (08:30)
[2022-08-18] MEDS: Levothyroxine Sodium 100 MCG TAB PO SCH (08:31)
[2022-08-18] MEDS: Senokot S 8.6-50 MG TAB PO SCH ×2 (08:31→20:18)
[2022-08-18] MEDS: Cefepime 2 GM in Sodium Chloride 0.9% 100 ML IVPB SCH ×2 (08:31→20:17)
[2022-08-18] MEDS: Multivit, Therapeutic 1 TAB PO SCH (08:31)
[2022-08-18] MEDS: Polyethylene Glycol 3350 17 GM Packet PO SCH (09:46)
[2022-08-18] MEDS: Tamsulosin HCl 0.4 MG CAP PO SCH (20:18)
[2022-08-18] MEDS: Melatonin 3 MG TAB PO PRN (20:21)
[2022-08-19 08:15] LABS: #Eosinphils 0.1 thou/uL (0.0-0.7); #Monocytes 0.7 thou/uL (0.11-0.59); #Neutrophils 8.6 thou/uL (1.40-6.50); %Basophils 0.3 % (0.0-1.0); %Eosinophils 1.1 % (0.0-10.0); %Lymphocytes 16.7 % (21.0-51.0); %Monocytes 6.5 % (0.0-10.0); %Neutrophils 75.1 % (42.0-75.0); Hemoglobin 13.2 g/dL (14.0-18.0); Mean Corpuscular HGB CONC 32.4 g/dL (32.0-36.0); Mean Corpuscular Hemoglobin 27.6 pg (27.0-31.0); Mean Corpuscular Volume 85.2 fl (78.0-98.0); Mean Platelet Volume 9.6 fL (7.4-10.4); Platelet Count 177 10x3/uL (130-400); RBC Distribution Width 14.7 % (11.5-14.5); Red Blood Cell (RBC) Count 4.79 mill/uL (4.70-6.10); White Blood Cell (WBC) Count 11.5 10x3/uL (4.8-10.8)
[2022-08-19 08:33] LABS: Anion Gap 12 mmol/L (10-20); BUN (Urea Nitrogen) 21 mg/dL (8.4-25.7); Calc. Creatinine Clearance 106 mL/min (70-130); Calcium 8.8 mg/dL (7.8-10.44); Carbon Dioxide 24 mmol/L (23-31); Chloride 105 mmol/L (98-107); Estimated GFR 86; Glucose 102 mg/dL (83-110); Potassium 3.7 mmol/L (3.5-5.1); Sodium 137 mmol/L (136-145)
[2022-08-19] MEDS: Levothyroxine Sodium 100 MCG TAB PO SCH (08:43)
[2022-08-19] MEDS: Multivit, Therapeutic 1 TAB PO SCH (08:43)
[2022-08-19] MEDS: Senokot S 8.6-50 MG TAB PO SCH ×2 (08:43→20:52)
[2022-08-19] MEDS: Cefepime 2 GM in Sodium Chloride 0.9% 100 ML IVPB SCH ×2 (08:43→20:52)
[2022-08-19] MEDS: Polyethylene Glycol 3350 17 GM Packet PO SCH (08:59)
[2022-08-19] MEDS: Tamsulosin HCl 0.4 MG CAP PO SCH (20:52)
[2022-08-19] MEDS: Melatonin 3 MG TAB PO PRN (22:37)
[2022-08-20] MEDS: Polyethylene Glycol 3350 17 GM Packet PO SCH (08:09)
[2022-08-20] MEDS: Senokot S 8.6-50 MG TAB PO SCH ×2 (08:09→20:25)
[2022-08-20] MEDS: Cefepime 2 GM in Sodium Chloride 0.9% 100 ML IVPB SCH ×2 (08:09→20:36)
[2022-08-20] MEDS: Multivit, Therapeutic 1 TAB PO SCH (08:09)
[2022-08-20] MEDS: Levothyroxine Sodium 100 MCG TAB PO SCH (08:09)
[2022-08-20] MEDS: Tamsulosin HCl 0.4 MG CAP PO SCH (20:25)
[2022-08-20] MEDS: Melatonin 3 MG TAB PO PRN (20:36)
[2022-08-21] MEDS: Cefepime 2 GM in Sodium Chloride 0.9% 100 ML IVPB SCH (08:35)
[2022-08-21] MEDS: Multivit, Therapeutic 1 TAB PO SCH (08:35)
[2022-08-21] MEDS: Levothyroxine Sodium 100 MCG TAB PO SCH (08:35)
[2022-08-21] MEDS: Polyethylene Glycol 3350 17 GM Packet PO SCH (08:36)
[2022-08-21] MEDS: Senokot S 8.6-50 MG TAB PO SCH (08:36)
[2022-08-21] MEDS ORDERED: Docusate 100 MG CAP PO SCH (09:00)
[2022-08-21 16:16] VITALS: BP 145/74; TEMP 97.8
== END 2022-08-21 16:47 | disposition home or self-care (01) | DRG 698 ==
LOC: ERS 01:01 → 2SW 03:06 → OBSVTOIN 08-15 13:50 → T4-A 08-15 19:51
PROVIDERS: ADMIT Student in an Organized Health Care Education/Training Program; ATTEND Internal Medicine
PROC: 3E03329 Introduction of Other Anti-infective into Peripheral Vein, Percutaneous Approach (ICD-10-PCS; 2022-08-14)
PROC: 02HV33Z Insertion of Infusion Device into Superior Vena Cava, Percutaneous Approach (ICD-10-PCS; principal; 2022-08-19)
PROC: B5181ZA Fluoroscopy of Superior Vena Cava using Low Osmolar Contrast, Guidance (ICD-10-PCS; 2022-08-19)
PROC: B548ZZA Ultrasonography of Superior Vena Cava, Guidance (ICD-10-PCS; 2022-08-19)
DX: T83.510A Infection and inflammatory reaction due to cystostomy catheter, initial encounter (principal); A41.52 Sepsis due to Pseudomonas; I48.19 Other persistent atrial fibrillation; N40.0 Benign prostatic hyperplasia without lower urinary tract symptoms; I50.9 Heart failure, unspecified; E03.9 Hypothyroidism, unspecified; N31.2 Flaccid neuropathic bladder, not elsewhere classified; N31.9 Neuromuscular dysfunction of bladder, unspecified; N30.90 Cystitis, unspecified without hematuria; Z91.041 Radiographic dye allergy status; Z98.890 Other specified postprocedural states; Z79.899 Other long term (current) drug therapy; Z79.890 Hormone replacement therapy
CPT/HCPCS: 36415; 36569; 71045; 74177; 80048; 80053; 80202; 81001; 83605; 83735; 84443; 85025; 87040; 87070; 87077; 87081; 87086; 87186; 87205; 87449; 87899; 96361; 96365; 96367; 96375; 96376; C1751; G0378; J0692; J0696; J1885; J3370; J3370-JW; J3475; J3490; J7120; J7512; Q9967

== ENCOUNTER 2023-03-12 13:35 | Outpatient (CLI) | payer OTHER | END 2023-03-12 13:36 | disposition home or self-care (01) | LOC: CT 13:35 | PROVIDERS: ATTEND Urology | DX: N40.1 Benign prostatic hyperplasia with lower urinary tract symptoms (principal); R33.8 Other retention of urine; N32.3 Diverticulum of bladder; N21.0 Calculus in bladder | CPT/HCPCS: 74176 ==

== ENCOUNTER 2023-04-08 00:32 | Inpatient (IN) | payer OTHER ==
[2023-04-08 01:37] LABS: #Basophils 0.1 thou/uL (0.0-0.2); #Eosinphils 0.1 thou/uL (0.0-0.7); #Monocytes 0.6 thou/uL (0.11-0.59); #Neutrophils 12.7 thou/uL (1.40-6.50); %Basophils 0.4 % (0.0-1.0); %Eosinophils 0.4 % (0.0-10.0); %Lymphocytes 2.3 % (21.0-51.0); %Monocytes 4.1 % (0.0-10.0); %Neutrophils 92.4 % (42.0-75.0); Hematocrit 41.5 % (42.0-52.0); Mean Corpuscular HGB CONC 33.7 g/dL (32.0-36.0); Mean Corpuscular Hemoglobin 28.9 pg (27.0-31.0); Mean Corpuscular Volume 85.6 fl (78.0-98.0); Platelet Count 150 10x3/uL (130-400); RBC Distribution Width 13.7 % (11.5-14.5); Red Blood Cell (RBC) Count 4.85 mill/uL (4.70-6.10); White Blood Cell (WBC) Count 13.7 10x3/uL (4.8-10.8)
[2023-04-08 02:01] LABS: ALT (SGPT) Less than 7 U/L (8-55); AST (SGOT) 16 U/L (5-34); Alkaline Phosphatase 47 U/L (40-110); Anion Gap 13 mmol/L (10-20); BUN (Urea Nitrogen) 20 mg/dL (8.4-25.7); Bilirubin, Total 0.5 mg/dL (0.2-1.2); Calc. Creatinine Clearance 0 mL/min (70-130); Calcium 8.7 mg/dL (7.8-10.44); Carbon Dioxide 24 mmol/L (23-31); Chloride 104 mmol/L (98-107); Estimated GFR 74; Globulin 2.4 g/dL (2.4-3.5); Glucose 145 mg/dL (83-110); Lipase 8 U/L (8-78); Magnesium 1.9 mg/dL (1.6-2.6); Potassium 3.6 mmol/L (3.5-5.1); Protein, Total 6.4 g/dL (5.8-8.1); Sodium 137 mmol/L (136-145)
[2023-04-08 02:31] LABS: Bacteria/HPF 1+ HPF (None Seen); Bilirubin Negative (Negative); Blood, Urine 2+ (Negative); CAUTI Indications for Culture Fever or rigors; Clarity Turbid (Clear); Glucose, Urine (Dipstick) Normal (Negative); Ketone, Urine Negative (Negative); Leukocyte 500 Leu/uL (Negative); Nitrite Negative (Negative); Protein, Urine (Dipstick) 50 mg/dL (Neg-Trace); Specific Gravity, Urine 1.019 (1.002-1.036); Squamous Epithelial 0-3 HPF (0-3); Urobilinogen Normal mg/dL (Less than 2); WBC/HPF Greater than 50 HPF (0-3); pH, Urine 7.5 (5.0-9.0)
[2023-04-08 02:32] LABS: Urine Culture Reflex Yes Yes
[2023-04-08 02:51] LABS: Troponin I 0.035 ng/mL (< 0.028)
[2023-04-08] MEDS ORDERED: Piperacillin/Tazobactam 3.375 GM VIAL ONE ×2 (02:56→08:52)
[2023-04-08] MEDS ORDERED: methylPREDNISolone Sod Succ 40 MG VIAL ONE (02:56)
[2023-04-08] MEDS ORDERED: Sodium Chloride 0.9% 100 ML ONE ×2 (02:56→08:52)
[2023-04-08] MEDS ORDERED: diphenhydrAMINE 50 MG/ML VIAL ONE (02:56)
[2023-04-08] MEDS ORDERED: Vancomycin 1 GM/200 ML (FROZEN) BAG ONE (02:57)
[2023-04-08] MEDS ORDERED: Famotidine/PF 20 mg/2ml Vial ONE (02:57)
[2023-04-08] MEDS ORDERED: Aspirin Chewable 81 MG TAB ONE (04:28)
[2023-04-08] MEDS ORDERED: HYDROcodone/Acetaminophen 10/325 mg Tablet ONE (04:29)
[2023-04-08 05:00] LABS: Lactic Acid 1.2 mmol/L (0.5-2.2)
[2023-04-08 06:49] LABS: Troponin I 0.176 ng/mL (< 0.028)
[2023-04-08] MEDS ORDERED: Ondansetron PF 4 MG/2 ML Vial IVP PRN (08:14)
[2023-04-08] MEDS ORDERED: Ondansetron ODT 4 MG TAB PO PRN (08:14)
[2023-04-08] MEDS ORDERED: HYDROcodone/Acetaminophen 5/325 mg Tablet PO PRN (08:14)
[2023-04-08] MEDS ORDERED: Acetaminophen 325 MG TAB PO PRN (08:14)
[2023-04-08] MEDS: Piperacillin/Tazobactam 3.375 GM in Sodium Chloride 0.9% 100 ML IVPB SCH (09:05)
[2023-04-08] MEDS: Sodium Chloride 0.9% 1,000 ML IV SCH (09:05)
[2023-04-08] MEDS ORDERED: traMADol HCl 50 MG TAB PO PRN (09:22)
[2023-04-08 09:27] LABS: Critical Call Chem Troponin I NUR.CD4 AT 0926; Troponin I 0.333 ng/mL (< 0.028)
[2023-04-08] MEDS ORDERED: Piperacillin/Tazobactam 3.375 GM in Sodium Chloride 0.9% 100 ML IVPB SCH (12:00)
[2023-04-08 12:57] VITALS: BMI 32.5
[2023-04-08] MEDS ORDERED: Iopamidol 370 76% 100 ML VIAL ONE (14:17)
[2023-04-08 14:27] LABS: Critical Call Chem Troponin I NUR.AA8@1426; Troponin I 0.518 ng/mL (< 0.028)
[2023-04-08] MEDS: Vancomycin 1 GM in Premix 1 BAG IVPB SCH (17:20)
[2023-04-08] MEDS ORDERED: Vancomycin (BATCH) 1.75 GM in Premix 1 BAG IVPB SCH (21:00)
[2023-04-08] MEDS: Senokot S 8.6-50 MG TAB PO SCH (21:09)
[2023-04-09 04:22] LABS: Hematocrit 39.2 % (42.0-52.0); Hemoglobin 12.8 g/dL (14.0-18.0); Mean Corpuscular HGB CONC 32.7 g/dL (32.0-36.0); Mean Corpuscular Hemoglobin 28.8 pg (27.0-31.0); Mean Corpuscular Volume 88.3 fl (78.0-98.0); Mean Platelet Volume 12.1 fL (7.4-10.4); Platelet Count 150 10x3/uL (130-400); RBC Distribution Width 14.1 % (11.5-14.5); Red Blood Cell (RBC) Count 4.44 mill/uL (4.70-6.10); White Blood Cell (WBC) Count 8.6 10x3/uL (4.8-10.8)
[2023-04-09 04:24] LABS: Delete Auto Diff?? YES
[2023-04-09 04:52] LABS: Anion Gap 10 mmol/L (10-20); BUN (Urea Nitrogen) 17 mg/dL (8.4-25.7); Calc. Creatinine Clearance 87 mL/min (70-130); Calcium 8.4 mg/dL (7.8-10.44); Carbon Dioxide 24 mmol/L (23-31); Chloride 107 mmol/L (98-107); Estimated GFR 71; Glucose 99 mg/dL (83-110); Potassium 3.8 mmol/L (3.5-5.1); Sodium 137 mmol/L (136-145)
[2023-04-09 08:10] LABS: Critical Call Chem Troponin I nur.sd13 at 0809; Troponin I 0.525 ng/mL (< 0.028)
[2023-04-09] MEDS: Multivit, Therapeutic 1 TAB PO SCH (08:41)
[2023-04-09] MEDS: Oxybutynin 5 MG TAB PO SCH (08:41)
[2023-04-09] MEDS ORDERED: Multivitamin W/ Minerals 1 TAB PO SCH (09:00)
[2023-04-09] MEDS: Aspirin 325 mg Enteric Coated Tablet PO SCH (11:05)
[2023-04-09 20:16] LABS: Vancomycin, Trough 6.3 ug/mL
[2023-04-09] MEDS: Vancomycin (BATCH) 1.5 GM in Premix 1 BAG IVPB SCH (21:24)
[2023-04-09] MEDS: Enoxaparin 120 MG/0.8 ML SYRINGE SC SCH (21:24)
[2023-04-10 04:55] LABS: #Basophils 0.1 thou/uL (0.0-0.2); #Eosinphils 0.6 thou/uL (0.0-0.7); #Monocytes 0.8 thou/uL (0.11-0.59); #Neutrophils 7.9 thou/uL (1.40-6.50); %Basophils 0.6 % (0.0-1.0); %Eosinophils 5.5 % (0.0-10.0); %Lymphocytes 11.2 % (21.0-51.0); %Monocytes 7.9 % (0.0-10.0); %Neutrophils 74.5 % (42.0-75.0); Hematocrit 40.3 % (42.0-52.0); Hemoglobin 13.4 g/dL (14.0-18.0); Mean Corpuscular HGB CONC 33.3 g/dL (32.0-36.0); Mean Corpuscular Hemoglobin 28.8 pg (27.0-31.0); Mean Corpuscular Volume 86.5 fl (78.0-98.0); Mean Platelet Volume 9.9 fL (7.4-10.4); Platelet Count 151 10x3/uL (130-400); RBC Distribution Width 13.9 % (11.5-14.5); Red Blood Cell (RBC) Count 4.66 mill/uL (4.70-6.10); White Blood Cell (WBC) Count 10.6 10x3/uL (4.8-10.8)
[2023-04-10 05:16] LABS: Anion Gap 12 mmol/L (10-20); BUN (Urea Nitrogen) 13 mg/dL (8.4-25.7); Calc. Creatinine Clearance 102 mL/min (70-130); Calcium 8.5 mg/dL (7.8-10.44); Carbon Dioxide 25 mmol/L (23-31); Chloride 104 mmol/L (98-107); Estimated GFR 85; Glucose 100 mg/dL (83-110); Potassium 3.9 mmol/L (3.5-5.1); Sodium 137 mmol/L (136-145)
[2023-04-10] MEDS: Aspirin 325 MG TAB PO SCH (09:10)
[2023-04-10] MEDS: Valsartan 80 MG TAB PO SCH (09:10)
[2023-04-10] MEDS: Enoxaparin 120 MG/0.8 ML SYRINGE SC SCH (09:10)
[2023-04-10] MEDS: Piperacillin/Tazobactam 3.375 GM in Sodium Chloride 0.9% 100 ML IVPB SCH (21:07)
[2023-04-11 03:57] LABS: #Eosinphils 0.6 thou/uL (0.0-0.7); #Monocytes 0.7 thou/uL (0.11-0.59); #Neutrophils 4.8 thou/uL (1.40-6.50); %Basophils 0.4 % (0.0-1.0); %Eosinophils 8.5 % (0.0-10.0); %Lymphocytes 18.3 % (21.0-51.0); %Monocytes 8.9 % (0.0-10.0); %Neutrophils 63.8 % (42.0-75.0); Hematocrit 41.1 % (42.0-52.0); Hemoglobin 13.3 g/dL (14.0-18.0); Mean Corpuscular HGB CONC 32.4 g/dL (32.0-36.0); Mean Corpuscular Hemoglobin 28.4 pg (27.0-31.0); Mean Corpuscular Volume 87.6 fl (78.0-98.0); Platelet Count 150 10x3/uL (130-400); RBC Distribution Width 13.9 % (11.5-14.5); Red Blood Cell (RBC) Count 4.69 mill/uL (4.70-6.10); White Blood Cell (WBC) Count 7.5 10x3/uL (4.8-10.8)
[2023-04-11 04:42] LABS: Anion Gap 10 mmol/L (10-20); BUN (Urea Nitrogen) 15 mg/dL (8.4-25.7); Calc. Creatinine Clearance 95 mL/min (70-130); Calcium 8.8 mg/dL (7.8-10.44); Carbon Dioxide 25 mmol/L (23-31); Chloride 104 mmol/L (98-107); Estimated GFR 78; Glucose 88 mg/dL (83-110); Sodium 135 mmol/L (136-145)
[2023-04-12] MEDS: predniSONE 20 MG TAB PO SCH (17:31)
[2023-04-12] MEDS: diphenhydrAMINE 25 MG CAP PO SCH (17:31)
[2023-04-12] MEDS: Famotidine 20 MG TAB PO SCH (17:31)
[2023-04-13] MEDS: Sodium Chloride 0.9% 1,000 ML IV SCH (05:13)
[2023-04-13] MEDS ORDERED: CATH FS SCH (06:00)
[2023-04-13] MEDS ORDERED: Iopamidol 370 76% 100 ML VIAL ONE (10:08)
[2023-04-13] MEDS ORDERED: Adenosine 6 mg (2 mL) VIAL ONE (11:00)
[2023-04-13] MEDS ORDERED: Verapamil 5 MG/2 ML VIAL ONE (11:00)
[2023-04-13] MEDS ORDERED: Heparin 10,000 UNITS/ 10 ML VIAL ONE (11:00)
[2023-04-13] MEDS ORDERED: Nitroglycerin 50 MG/250 ML BOT 0 ML ONE (11:01)
[2023-04-13] MEDS ORDERED: Hydrocortisone Sod Succ/PF 100 mg/2 ml Vial ONE (11:49)
[2023-04-13] MEDS ORDERED: fentaNYL 50 mcg/mL 1 mL Vial ONE (11:56)
[2023-04-13] MEDS ORDERED: Midazolam HCl 2 mg/2 ml Vial ONE (11:57)
[2023-04-13] MEDS ORDERED: EPINEPHrine 1 MG/ML VIAL ONE (12:11)
[2023-04-13] MEDS ORDERED: TICAGRELOR 90 MG TABLET ONE (13:04)
[2023-04-14] MEDS: Sodium Chloride 0.9% 500 ML IV SCH (00:39)
[2023-04-14 01:14] LABS: Anion Gap 9 mmol/L (10-20); BUN (Urea Nitrogen) 26 mg/dL (8.4-25.7); Calc. Creatinine Clearance 83 mL/min (70-130); Calcium 8.2 mg/dL (7.8-10.44); Carbon Dioxide 26 mmol/L (23-31); Chloride 105 mmol/L (98-107); Estimated GFR 67; Glucose 115 mg/dL (83-110); Magnesium 2.3 mg/dL (1.6-2.6); Potassium 3.6 mmol/L (3.5-5.1); Sodium 136 mmol/L (136-145)
[2023-04-14 11:36] VITALS: TEMP 97.5
[2023-04-14] MEDS: Clopidogrel Bisulfate 75 MG TAB PO SCH (13:36)
[2023-04-14 16:13] VITALS: BP 134/74
[2023-04-14] MEDS ORDERED: Atorvastatin Calcium 40 MG TAB PO SCH (21:00)
[2023-04-15] MEDS ORDERED: Clopidogrel Bisulfate 75 MG TAB PO SCH (09:00)
[2023-04-15] MEDS ORDERED: Aspirin 81 mg Enteric Coated Tablet PO SCH (09:00)
== END 2023-04-14 15:08 | disposition home or self-care (01) | DRG 322 ==
LOC: ERS 00:32 → ERHOLD 05:51 → 2SW 12:35
PROVIDERS: ADMIT Student in an Organized Health Care Education/Training Program; ATTEND Internal Medicine
PROC: 4A023N7 Measurement of Cardiac Sampling and Pressure, Left Heart, Percutaneous Approach (ICD-10-PCS; principal; 2023-04-13)
PROC: 027135Z Dilation of Coronary Artery, Two Arteries with Two Drug-eluting Intraluminal Devices, Percutaneous Approach (ICD-10-PCS; 2023-04-13)
PROC: B2151ZZ Fluoroscopy of Left Heart using Low Osmolar Contrast (ICD-10-PCS; 2023-04-13)
PROC: B2111ZZ Fluoroscopy of Multiple Coronary Arteries using Low Osmolar Contrast (ICD-10-PCS; 2023-04-13)
PROC: 3E033XZ Introduction of Vasopressor into Peripheral Vein, Percutaneous Approach (ICD-10-PCS; 2023-04-13)
PROC: B2181ZZ Fluoroscopy of Left Internal Mammary Bypass Graft using Low Osmolar Contrast (ICD-10-PCS; 2023-04-13)
PROC: B241ZZ3 Ultrasonography of Multiple Coronary Arteries, Intravascular (ICD-10-PCS; 2023-04-13)
DX: I21.4 Non-ST elevation (NSTEMI) myocardial infarction (principal); I42.9 Cardiomyopathy, unspecified; I50.22 Chronic systolic (congestive) heart failure; Z91.041 Radiographic dye allergy status; Z79.899 Other long term (current) drug therapy; K21.9 Gastro-esophageal reflux disease without esophagitis; I48.91 Unspecified atrial fibrillation; N31.9 Neuromuscular dysfunction of bladder, unspecified; Z79.82 Long term (current) use of aspirin; N18.2 Chronic kidney disease, stage 2 (mild); E66.9 Obesity, unspecified; Z68.32 Body mass index [BMI] 32.0-32.9, adult; K57.30 Diverticulosis of large intestine without perforation or abscess without bleeding; D63.1 Anemia in chronic kidney disease
CPT/HCPCS: 36415; 71045; 71275; 74177; 80048; 80053; 80202; 81001; 83605; 83690; 83735; 83880; 84484; 85025; 85347; 85379; 87040; 87086; 92928; 92929; 92978; 93005; 93010; 93306; 93458; 96365; 96366; 96368; 96375; 99152; 99153; C1753; C1760; C1769; C1874; C1887; C1894; C9600; C9601; J0153; J0171; J1200; J1644; J1650; J1720; J2250; J2543; J2920; J3010; J3370; J3370-JW; J3490; J7030; J7050; J7512; Q9967; S0028

== ENCOUNTER 2024-01-12 10:51 | Outpatient (CLI) | payer OTHER | END 2024-01-12 10:52 | disposition home or self-care (01) | LOC: ULT 10:51 | PROVIDERS: ATTEND Urology | DX: Z43.5 Encounter for attention to cystostomy (principal); N32.3 Diverticulum of bladder; R33.9 Retention of urine, unspecified | CPT/HCPCS: 76770 ==

== ENCOUNTER 2024-02-02 10:50 | Outpatient (CLI) | payer OTHER | END 2024-02-02 10:51 | disposition home or self-care (01) | LOC: MRI 10:50 | DX: M51.16 Intervertebral disc disorders with radiculopathy, lumbar region (principal); M48.061 Spinal stenosis, lumbar region without neurogenic claudication | CPT/HCPCS: 72148 ==